=== PATIENT | female | born 1975 | race Caucasian/White ===

== ENCOUNTER 2020-12-23 15:23 | Emergency (ER) | payer SELFPAY ==
[~2020-12-23] VITALS: Ht 157 cm; Wt 57.0 kg
[~2020-12-23 15:23] MED LIST: ALLEGRA 180 MG; PANT20TA2 PO; PROZAC 30MG
--- NOTE | 2020-12-23 15:28 | ED Chest Pain ---
General Stated Complaint: CHEST PAIN, L ARM PAIN, NECK PAIN History of Present Illness Date Seen by Provider: Dec 23, 2020 Time Seen by Provider: 15:28 Initial Comments 45-year-old female presents with left arm pain that radiates into her left neck that has been pretty persistent for about 4 weeks. Patient reports that she has been having night sweats for about the last 4 weeks. Today she felt like her heart rate was beating faster and having palpitations. That she gets short of breath with exertion. She smokes a pack a day of cigarettes. Her mother had multiple bypass surgery in her 50s and her father had a cardiac event in his 70s. Patient has not been seen regarding the left arm pain and night sweats. Allergies and Home Medications Allergies Coded Allergies: Sulfa (Sulfonamide Antibiotics) (Verified Allergy, Intermediate, RASH, 06/23/08) Home Medications Pantoprazole Sodium 20 Mg Tablet.dr, 40 MG PO DAILY Prescribed by: BHAVIN BAY on 04/02/15 1201 Patient Home Medication List Home Medication List Reviewed: Yes Review of Systems Review of Systems Constitutional: diaphoresis, malaise Respiratory: Denies Cough; SOA With Exertion Cardiovascular: Chest Pain, Lightheadedness, Palpitations Gastrointestinal: Denies Abdominal Pain, Denies Nausea, Denies Vomiting Genitourinary: Denies Burning Musculoskeletal: see HPI Skin: no symptoms reported Psychiatric/Neurological: No Symptoms Reported Endocrine: No Symptoms Reported Hematologic/Lymphatic: No Symptoms Reported Past [id number] Hx Past Med/Social Hx: Reviewed Nursing Past Med/Soc Hx Past Medical History Reproductive Disorders: Yes (POLYCYSTIC OVARIAN SYNDROME) Physical Exam Vital Signs Vital Signs - First Documented 12/23/20 15:23 Temp 36.8 Pulse 102 Resp 32 B/P (MAP) 168/84 (112) Pulse Ox 98 O2 Delivery Room Air Capillary Refill : Height, Weight, BMI Height: 5'2.00" Weight: 128lbs. oz. 58.767799lh; BMI Method: General Appearance: Anxious, Mild Distress HEENT: PERRL/EOMI Neck: Non Tender, Supple Respiratory: Lungs Clear, Normal Breath Sounds Cardiovascular: Normal Peripheral Pulses, Tachycardia Gastrointestinal: Non Tender, Soft Extremity: Normal Capillary Refill, Normal Inspection Neurologic/Psychiatric: Alert, Oriented x3, Normal Mood/Affect, box hinge and lock attacher II-XII Norm as Tested Skin: Normal Color, Warm/Dry Progress/Results/Core Measures Results/Orders Lab Results Laboratory Tests Test 12/23/20 15:30 Range/Units White Blood Count 9.5 4.3-11.0 10^3/uL Red Blood Count 3.97 3.80-5.11 10^6/uL Hemoglobin 13.3 11.5-16.0 g/dL Hematocrit 38 35-52 % Mean Corpuscular Volume 95 80-99 fL Mean Corpuscular Hemoglobin 34 25-34 pg Mean Corpuscular Hemoglobin Concent 36 32-36 g/dL Red Cell Distribution Width 15.1 H 10.0-14.5 % Platelet Count 408 H 130-400 10^3/uL Mean Platelet Volume 9.1 9.0-12.2 fL Immature Granulocyte % (Auto) 0 % Neutrophils (%) (Auto) 59 42-75 % Lymphocytes (%) (Auto) 32 12-44 % Monocytes (%) (Auto) 7 0-12 % Eosinophils (%) (Auto) 1 0-10 % Basophils (%) (Auto) 1 0-10 % Neutrophils # (Auto) 5.6 1.8-7.8 10^3/uL Lymphocytes # (Auto) 3.0 1.0-4.0 10^3/uL Monocytes # (Auto) 0.7 0.0-1.0 10^3/uL Eosinophils # (Auto) 0.1 0.0-0.3 10^3/uL Basophils # (Auto) 0.1 0.0-0.1 10^3/uL Immature Granulocyte # (Auto) 0.0 0.0-0.1 10^3/uL Prothrombin Time 12.0 L 12.2-14.7 SEC INR Comment 0.9 0.8-1.4 Activated Partial Thromboplast Time 28 24-35 SEC D-Dimer <= 0.27 0.00-0.49 UG/ML Sodium Level 140 135-145 MMOL/L Potassium Level 3.6 3.6-5.0 MMOL/L Chloride Level 103 98-107 MMOL/L Carbon Dioxide Level 30 21-32 MMOL/L Anion Gap 7 5-14 MMOL/L Blood Urea Nitrogen 12 7-18 MG/DL Creatinine 0.81 0.60-1.30 MG/DL Estimat Glomerular Filtration Rate > 60 BUN/Creatinine Ratio 15 Glucose Level 110 H 70-105 MG/DL Calcium Level 9.5 8.5-10.1 MG/DL Corrected Calcium 9.3 8.5-10.1 MG/DL Magnesium Level 2.0 1.6-2.4 MG/DL Total Bilirubin 0.2 0.1-1.0 MG/DL Aspartate Amino Transf (AST/SGOT) 20 5-34 U/L Alanine Aminotransferase (ALT/SGPT) 15 0-55 U/L Alkaline Phosphatase 51 40-136 U/L Myoglobin 29.6 10.0-92.0 NG/ML Troponin I < 0.028 <0.028 NG/ML C-Reactive Protein High Sensitivity 0.69 H 0.00-0.50 MG/DL B-Type Natriuretic Peptide 32.7 <100.0 PG/ML Total Protein 8.0 6.4-8.2 GM/DL Albumin 4.3 3.2-4.5 GM/DL My Orders Orders - COLEY,DAMARIS L DO Cbc With Automated Diff (12/23/20 15:28) Magnesium (12/23/20 15:28) Chest 1 View, Ap/Pa Only (12/23/20 15:28) Ekg Tracing (12/23/20 15:28) Comprehensive Metabolic Panel (12/23/20 15:28) Myoglobin Serum (12/23/20 15:28) Protime With Inr (12/23/20 15:28) Partial Thromboplastin Time (12/23/20 15:28) O2 (12/23/20 15:28) Monitor-Rhythm Ecg Trace Only (12/23/20 15:28) Lipid Panel (12/24/20 06:00) Ed Iv/Invasive Line Start (12/23/20 15:28) BNP (12/23/20 15:28) Fibrin Degradation Products (12/23/20 15:28) Aspirin Chewable Tablet (Baby Aspirin Ch (12/23/20 15:30) Hs C Reactive Protein (12/23/20 15:30) Troponin I (12/23/20 15:30) Medications Given in ED Current Medications Medications Dose Ordered Sig/Meryl Route Start Time Stop Time Status Last Admin Dose Admin Aspirin 324 mg ONCE ONCE PO 12/23/20 15:30 12/23/20 15:31 DC 12/23/20 15:34 324 MG Vital Signs/I&O 12/23/20 15:23 Temp 36.8 Pulse 102 Resp 32 B/P (MAP) 168/84 (112) Pulse Ox 98 O2 Delivery Room Air Progress Progress Note : Time: 16:24 Progress Note Patient with no acute findings on her labs, EKG, chest x-ray. Had a long discussion with patient regarding her need to quit smoking. Recommend she follow-up with outpatient cardiology. Also recommend she follow-up with her primary care provider to evaluate her night sweats. Discussed with her along differential regarding her night sweats and that it is important to follow-up for further evaluation. Patient symptoms baseline for recent month and she is stable. She will be discharged home for further outpatient evaluation Initial ECG Impression Date: Dec 23, 2020 Initial ECG Impression Time: 15:28 Initial ECG Rate: 99 Initial ECG Rhythm: Normal Sinus Initial ECG Impression: Nonspecific Changes Comment No acute findings Diagnostic Imaging Diagonstic Imaging: Xray Plain Films/CT/US/NM/MRI: chest Comments [facility], [place] NAME: KRISTY FELTON [facility] REC#: [id number] PT STATUS: REG ER : 1975 PHYSICIAN: DAMARIS COLEY DO ADMIT DATE: 12/23/20/ER Draft Date of Exam:12/23/20 CHEST 1 VIEW, AP/PA ONLY INDICATION: Palpitations and chest pain. TIME OF EXAM: 3:39 p.m. Correlation is made with prior chest 03/17/2015. FINDINGS: The heart size is normal. The pulmonary vascularity is unremarkable. The lungs are clear. No infiltrate, effusion or pneumothorax is detected. IMPRESSION: No acute cardiopulmonary process is detected. Dictated on workstation # [id number] Dict: 12/23/20 1548 Trans: 12/23/20 1549 [facility] [id number] Interpreted by: RICHIE ANDERSON MD Electronically signed by: Departure Impression Primary Impression: Unexplained night sweats Additional Impressions: Chronic pain of left upper extremity Tobacco use disorder, mild, abuse Disposition: HOME, SELF-CARE Condition: Stable Departure-Patient Inst. Referrals: MARGUERITE ORELLANA MD (PCP) Primary Care Physician Patient Instructions: Quitting Smoking, Lowering Your Risk of Heart Disease Add. Discharge Instructions: Follow-up with your primary care provider for further evaluation of your night sweats along with chronic left arm pain. Follow-up with cardiology for further evaluation due to your high cardiac risk for smoking and family history Recommend you stop smoking DAMARIS COLEY DO Dec 23, 2020 15:28
[2020-12-23] MEDS ORDERED: ASPIRIN 81 MG CHEW (CHILDREN'S ASA) PO ONE (15:30)
[2020-12-23 15:37] LABS: BASOPHILS # (AUTO) 0.1 10^3/uL (0.0-0.1); BASOPHILS % (AUTO) 1 % (0-10); EOSINOPHILS # (AUTO) 0.1 10^3/uL (0.0-0.3); EOSINOPHILS % (AUTO) 1 % (0-10); HEMATOCRIT 38 % (35-52); HEMOGLOBIN 13.3 g/dL (11.5-16.0); LYMPHOCYTES % (AUTO) 32 % (12-44); MEAN CORPUSCULAR HEMOGLOBIN 34 pg (25-34); MEAN CORPUSCULAR HGB CONC 36 g/dL (32-36); MEAN CORPUSCULAR VOLUME 95 fL (80-99); MEAN PLATELET VOLUME 9.1 fL (9.0-12.2); MONOCYTES # (AUTO) 0.7 10^3/uL (0.0-1.0); MONOCYTES % (AUTO) 7 % (0-12); NEUTROPHILS # (AUTO) 5.6 10^3/uL (1.8-7.8); NEUTROPHILS % (AUTO) 59 % (42-75); PLATELET COUNT 408 10^3/uL (130-400); WHITE BLOOD COUNT 9.5 10^3/uL (4.3-11.0)
--- NOTE | 2020-12-23 15:49 | Diagnostic Imaging Report ---
INDICATION: Palpitations and chest pain. TIME OF EXAM: 3:39 p.m. Correlation is made with prior chest 03/17/2015. FINDINGS: The heart size is normal. The pulmonary vascularity is unremarkable. The lungs are clear. No infiltrate, effusion or pneumothorax is detected. IMPRESSION: No acute cardiopulmonary process is detected. Dictated by: Dictated on workstation # [id number]
[2020-12-23 15:51] LABS: ALBUMIN 4.3 GM/DL (3.2-4.5)
[2020-12-23 15:52] LABS: CHLORIDE 103 MMOL/L (98-107); POTASSIUM 3.6 MMOL/L (3.6-5.0); SODIUM 140 MMOL/L (135-145)
[2020-12-23 15:53] LABS: CALCIUM 9.5 MG/DL (8.5-10.1)
[2020-12-23 15:54] LABS: GLUCOSE 110 MG/DL (70-105)
[2020-12-23 15:55] LABS: CARBON DIOXIDE 30 MMOL/L (21-32)
[2020-12-23 15:56] LABS: BILIRUBIN,TOTAL 0.2 MG/DL (0.1-1.0)
[2020-12-23 15:57] LABS: ALKALINE PHOSPHATASE 51 U/L (40-136); INR 0.9 (0.8-1.4)
[2020-12-23 15:58] LABS: CREATININE SERUM 0.81 MG/DL (0.60-1.30); GFR ESTIMATED > 60
[2020-12-23 15:59] LABS: BUN/CREATININE RATIO 15
[2020-12-23 16:00] LABS: ALANINE AMINOTRANSFERASE 15 U/L (0-55)
[2020-12-23 16:56] VITALS: BP 108/82
== END 2020-12-23 16:56 | disposition home or self-care (01) ==
LOC: EDUNIT# 15:23 → ER 15:25
DX: R61 Generalized hyperhidrosis (principal); M79.602 Pain in left arm; F17.210 Nicotine dependence, cigarettes, uncomplicated; F41.9 Anxiety disorder, unspecified; Z88.2 Allergy status to sulfonamides
CPT/HCPCS: 36415; 71045; 80053; 83735; 83874; 83880; 84484; 85025; 85379; 85610; 85730; 86141; 93005; 93041

== ENCOUNTER → 2021-03-19 | Outpatient (CLI) | payer SELFPAY ==
[2021-03-19 12:58] LABS: BASOPHILS # (AUTO) 0.1 10^3/uL (0.0-0.1); BASOPHILS % (AUTO) 1 % (0-10); EOSINOPHILS # (AUTO) 0.1 10^3/uL (0.0-0.3); EOSINOPHILS % (AUTO) 1 % (0-10); HEMATOCRIT 39 % (35-52); HEMOGLOBIN 13.2 g/dL (11.5-16.0); LYMPHOCYTES % (AUTO) 35 % (12-44); MEAN CORPUSCULAR HEMOGLOBIN 33 pg (25-34); MEAN CORPUSCULAR HGB CONC 34 g/dL (32-36); MEAN CORPUSCULAR VOLUME 97 fL (80-99); MEAN PLATELET VOLUME 9.1 fL (9.0-12.2); MONOCYTES # (AUTO) 0.6 10^3/uL (0.0-1.0); MONOCYTES % (AUTO) 7 % (0-12); NEUTROPHILS % (AUTO) 57 % (42-75); PLATELET COUNT 411 10^3/uL (130-400); WHITE BLOOD COUNT 8.8 10^3/uL (4.3-11.0)
[2021-03-19 13:23] LABS: ALANINE AMINOTRANSFERASE 10 U/L (0-55); ALBUMIN 4.3 GM/DL (3.2-4.5); ALKALINE PHOSPHATASE 54 U/L (40-136); BILIRUBIN,TOTAL 0.3 MG/DL (0.1-1.0); BUN/CREATININE RATIO 13; CALCIUM 9.3 MG/DL (8.5-10.1); CARBON DIOXIDE 23 MMOL/L (21-32); CHLORIDE 101 MMOL/L (98-107); CHOLESTEROL 258 MG/DL (< 200); CREATININE SERUM 0.71 MG/DL (0.60-1.30); GFR ESTIMATED > 60; GLUCOSE 91 MG/DL (70-105); HDL CHOLESTEROL 55 MG/DL (40-60); POTASSIUM 3.8 MMOL/L (3.6-5.0); SODIUM 136 MMOL/L (135-145); TOTAL PROTEIN 7.8 GM/DL (6.4-8.2); TRIGLYCERIDES 164 MG/DL (<150); VLDL CHOLESTEROL 33 MG/DL (5-40)
[2021-03-19 13:42] LABS: TSH (THYROID ANALYZER) 0.66 UIU/ML (0.35-4.94)
== END ==
LOC: LAB 12:14
PROVIDERS: ATTEND Family Medicine
DX: N95.1 Menopausal and female climacteric states (principal); G03.9 Meningitis, unspecified
CPT/HCPCS: 36415; 80053; 80061; 82672; 83001; 83002; 84144; 84443; 85025

== ENCOUNTER → 2021-04-22 | Outpatient (CLI) | payer SELFPAY | LOC: CARD 14:13 | PROVIDERS: ATTEND Internal Medicine Cardiovascular Disease | DX: I10 Essential (primary) hypertension (principal); I25.10 Atherosclerotic heart disease of native coronary artery without angina pectoris | CPT/HCPCS: 93306 ==